=== PATIENT | male | born 1955 | race American Indian/Alaskan Native ===

== ENCOUNTER 2016-07-20 08:47 | Emergency (ER) | payer OTHER ==
[2016-07-20 09:12] VITALS: BP 157/89
--- NOTE | 2016-07-20 10:31 | UC ---
Otilio Dias,[place], scribed for Jennifer Cornell MD on 07/20/16 at 0946 . Skin Complaint HPI - HPI Summary HPI Summary: This 61 y/o male presents to [facility] for a cyst above buttock that has started draining since today. Pt states that his cyst "popped" while in bathroom in [facility]. Pt states that he has been controlling his cyst with unspecified suppository that was prescribed by his doctor. PMHx includes similar pilonidal cyst that, per pt, had surgery done "a year ago". PMHx includes positive leukemia to mother. Pt is former smoker with last smoking date in June 2013 and weekly drinker. Primary care involves Dr. Quezada. - History of Current Complaint Chief Complaint: UCSkin Stated Complaint: SKIN COMPLAINT Hx Obtained From: Patient, Medical Records Onset/Duration: Lasting Hours, Still Present Timing: Constant Onset Severity: Mild Current Severity: Mild Pain Intensity: 0 Pain Scale Used: 0-10 Numeric Location: Other - top of buttocks Character: Swelling, Raised, Painful Aggravating: Nothing Alleviating: Nothing Associated Signs & Symptoms: Positive: Negative. Negative: Fever - Allergy/Home Medications Allergies/Adverse Reactions: Allergies Allergy/AdvReac Type Severity Reaction Status Date / Time Latex Allergy Swelling Verified 05/11/16 14:30 Of Face,Lips,& Throat Home Medications: Home Medications Albuterol HFA INHALER* [Ventolin HFA Inhaler*] 1 puff PO PRN 07/20/16 [History] Budesonide/Formote 80/4.5(NF) [Symbicort 80/4.5 (NF)] 1 puff PO DAILY 07/20/16 [ History Confirmed 07/20/16] Ferrous Sulfate [Fe Tabs] 325 mg PO BID 07/20/16 [History Confirmed 07/20/16] Review of Systems Constitutional: Negative Skin: Other - Draining cyst on top of buttock. Eyes: Negative ENT: Negative Respiratory: Negative Cardiovascular: Negative Gastrointestinal: Negative Genitourinary: Negative Motor: Negative Neurovascular: Negative Musculoskeletal: Negative Neurological: Negative Psychological: Negative All Other Systems Reviewed And Are Negative: Yes PMH/Surg Hx/FS Hx/Imm Hx Previously Healthy: No - hx pilonidal cyst Endocrine History Of: Denies: Diabetes, Thyroid Disease Cardiovascular History Of: Denies: Cardiac Disorders, Hypertension, Pacemaker/ICD Respiratory History Of: Denies: COPD, Asthma GI/ History Of: Denies: Ulcer, Renal Disease - Surgical History Surgical History: Yes Surgery Procedure, Year, and Place: 2004 - DECOMPRESSIVE LAMINECTOMY T11-T12 - [facility] – [place]. 1999 - PERIANAL ABSCESS - Family History Known Family History: Positive: Other - Positive for leukemia to mother - Social History Occupation: Employed Full-time Alcohol Use: Weekly Substance Use Type: Prescribed Substance Use Comment - Amount & Last Used: cyclobenzapene PRN muscle spasms ( back) Smoking Status (MU): Former Smoker Type: Cigarettes Amount Used/How Often: 2-3 per day Length of Time of Smoking/Using Tobacco: 10 years- quit [email or web address] Have You Smoked in the Last Year: Yes Physical Exam Triage Information Reviewed: Yes Appearance: Well-Appearing, No Pain Distress, Obese Vital Signs: Initial Vital Signs Temp 99.1 F 07/20/16 09:05 Pulse 102 07/20/16 09:05 Resp 18 07/20/16 09:05 BP 157/89 07/20/16 09:05 Pulse Ox 98 07/20/16 09:05 Vital Signs Reviewed: Yes Eyes: Positive: Conjunctiva Clear ENT: Positive: Hearing grossly normal. Negative: Muffled/hoarse voice Neck: Positive: Supple Respiratory: Positive: Lungs clear, Normal breath sounds, No respiratory distress Cardiovascular: Positive: RRR, No Murmur, Pulses Normal, Brisk Capillary Refill Abdomen Description: Positive: Nontender, No Organomegaly, Soft Musculoskeletal: Positive: Strength Intact, ROM Intact Neurological: Positive: Alert, Muscle Tone Normal Psychological Exam: Normal Skin: Positive: Other - pilonidal cyst on gluteal cleft, left -- draining serosanguinous fluid. Course/Dx - Course Course Of Treatment: Home medication list is reviewed. Allergy information reviewed. Drainage is cultured. No need for I&D as drainage occured spontaneously. - Differential Diagnoses - Skin Complaint Differential Diagnoses: Abscess, Cellulitis, Other - pilonidal cyst - Diagnoses Provider Diagnoses: 1) pilonidal cyst 2) Elevated blood pressure without diagonsis of HTN. Discharge - Discharge Plan Condition: Stable Disposition: HOME Prescriptions: Cephalexin CAP* [Keflex 500 CAP*] 500 mg PO QID #40 cap Patient Education Materials: Pilonidal Cyst (ED), Cephalexin (By mouth) Forms: *Work Release Referrals: Alfredo Quezada MD [Primary Care Provider] - 2 Days J Carlos Thorpe MD [Medical Doctor] - 2 Days Additional Instructions: Do Sitz Bath four times a day. Keep the area clean and dry. Do not use ointment. Return to urgent care if any new or worsening symptoms. The documentation as recorded by the Otilio cr Soohyun accurately reflects the service I personally performed and the decisions made by , Jennifer Cornell MD.
--- NOTE | 2016-07-21 10:47 | UC ---
Progress - Progress Note Progress Note: cephalexin 07/20/16. cx/sens pending.
== END 2016-07-20 10:10 | disposition home or self-care (01) ==
LOC: UCEAST 08:47
DX: L05.91 Pilonidal cyst without abscess (principal); R03.0 Elevated blood-pressure reading, without diagnosis of hypertension; E66.9 Obesity, unspecified; Z87.891 Personal history of nicotine dependence; Z91.040 Latex allergy status
CPT/HCPCS: 87070; 87205; 99212; G0463

== ENCOUNTER 2017-03-18 06:53 | Day surgery (SDC) | payer OTHER ==
[~2017-03-18 06:53] MED LIST: Buffered Lidocaine 0.9% SYRIN* 5 ML/SYR SYRINGE INTRADERM ONE; Dexamethasone IV* 4 MG/ML 1 ML (4 MG) IV SLOW PU ONE; Famotidine IV* 10 MG/ML 2 ML (20 mg) IV ONE
[2017-03-18] MEDS ORDERED: Dexamethasone IV* 4 MG/ML 1 ML (4 MG) ONE (06:56)
[2017-03-18] MEDS ORDERED: Famotidine IV* 10 MG/ML 2 ML (20 mg) ONE (06:56)
[2017-03-18] MEDS ORDERED: ceFAZolin 2 GM PREMIX (*) 2 GM/50 ML BAG IVPB ONE (06:57)
[2017-03-18] MEDS ORDERED: Buffered Lidocaine 0.9% SYRIN* 5 ML/SYR SYRINGE ONE (06:57)
[2017-03-18] MEDS ORDERED: ceFAZolin 1 GM in Dextrose (*) 0 GM/0 ML BAG IVPB ONE (06:57)
[2017-03-18] MEDS ORDERED: Lidocaine 2% PF * 5 ML VIAL ONE (09:03)
[2017-03-18] MEDS ORDERED: fentaNYL* 50 MCG/ML 2 ML VIAL (100 MCG VIAL) ONE ×2 (09:03→10:20)
[2017-03-18] MEDS ORDERED: Propofol* 10 MG/ML 20 ML BTL IV PUSH ONE (09:03)
[2017-03-18] MEDS ORDERED: Midazolam* 1 MG/ML 2 ML VIAL (2 MG) ONE (09:03)
[2017-03-18] MEDS ORDERED: Bupivacaine 0.25% SDV* 30 ML ONE (09:03)
[2017-03-18] MEDS ORDERED: fentaNYL* 50 MCG/ML 2 ML VIAL (100 MCG VIAL) IV PRN (09:05)
[2017-03-18] MEDS ORDERED: Naloxone* 0.4 MG/ML 1 ML VIAL IV PRN (09:05)
[2017-03-18] MEDS ORDERED: PROCHLORPERAZINE INJ 5 MG/ML 2 ML VIAL IV PRN (09:05)
[2017-03-18] MEDS ORDERED: HYDROcodone/ACETAMIN 5-325 MG* 1 TAB PO PRN (09:05)
[2017-03-18] MEDS ORDERED: Ondansetron INJ* 2 MG/ML VIAL ONE (09:45)
[2017-03-18] MEDS ORDERED: oxyCODONE/Acetamin 5/325 MG* TAB ONE ×2 (10:15→10:59)
[2017-03-18] MEDS: oxyCODONE/Acetamin 5/325 MG* TAB PO PRN ×2 (10:17→11:00)
[2017-03-18 12:01] VITALS: BP 137/88
--- NOTE | 2017-03-18 23:01 | OP ---
DATE OF OPERATION: 03/18/17 - [facility] DATE OF : 59 SURGEON: Emile Mena MD POST FORM REMOVER: JAZ Morales ANESTHESIOLOGIST: Papito Pearson MD ANESTHESIA: General endotracheal anesthesia with local anesthetic given by the surgeon. 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 OPERATIVE PROCEDURE: Right modified Morgan gastrocnemius recession. IMPLANTS: None. TOURNIQUET TIME: Less than 30 minutes with a well padded thigh tourniquet at 250 mmHg. ESTIMATED BLOOD LOSS: Minimal. COMPLICATIONS: None. STATUS: Stable from the operating room to the recovery room and then home. 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 Both nonoperative and operative treatment alternatives were reviewed. Further, the nature and risk of surgery were reviewed in careful detail in the office as well as in the preoperative holding area. Our discussions regarding the risk of surgery included, but were not limited to infection, wound problems, bleeding, nerve injury, neuroma, RSD, persistent symptoms, need for further surgery and even the remote chance of a catastrophic complication including the loss of limb. DESCRIPTION OF PROCEDURE: The patient was seen in the preoperative holding unit and informed written consent was obtained. The appropriate extremity was marked. The patient was then brought to the operating room and carefully positioned on the operating room table. Anesthesia was induced. All bony prominences were padded with great care. A well padded thigh tourniquet was placed. A chlorhexidine based pre-scrub was performed followed by standard prep and drape with ChloraPrep. Surgical safety pause was then conducted in which we confirmed the appropriate patient, extremity, planned procedure, availability of equipment, indication, and administration of prophylactic antibiotics and DVT prophylaxis in the form of a compression boot on the nonsurgical extremity. We began with an Esmarch exsanguination of limb and inflated the tourniquet to 250 mmHg. I then made an approximately 4 cm incision at the posterior medial calf. I carried the dissection down through the soft tissues and coagulated the veins that were encountered. This was carried down bluntly to the level of the crural fascia. An incision was made through the crural fascia to expose the musculotendinous junction of the gastrocnemius. I then exposed the fascia of the gastrocnemius muscle anteriorly and posteriorly. Great care was taken to protect the sural nerve throughout the procedure. I cleared all adhesions from the posterior aspect of the gastrocnemius fascia and then transected it in its entirety from medial to lateral. This had the effect of improving the ankle dorsiflexion to approximately 15 degrees of dorsiflexion. He had maintained a Hercules test. We then again confirmed that the sural nerve was in continuity. We irrigated copiously and then closed the deep dermal layer with 3-0 Monocryl and talita for the skin. A sterile dressing was not applied. A splint was then applied with the ankle in slight dorsiflexion. The patient was then awakened from anesthesia and transferred to the recovery room in stable condition. There were no complications. All needle and sponge counts were correct at the end of the case. ATTESTATION: I attest that I was present, scrubbed and performed the entire procedure myself. POSTOPERATIVE PLAN: The patient will remain nonweightbearing for 2 weeks in the splint. At that time, we will plan on taking out the talita and placing Steri-Strips and letting him start weightbearing in a boot. Progress his activities as tolerated. [id number]/[facility] #: [id number] KAVON
== END 2017-03-18 12:02 | disposition home or self-care (01) ==
LOC: OR 06:53
PROVIDERS: ATTEND Orthopaedic Surgery
DX: M76.61 Achilles tendinitis, right leg (principal); M67.01 Short Achilles tendon (acquired), right ankle; Z87.891 Personal history of nicotine dependence; G47.33 Obstructive sleep apnea (adult) (pediatric); D69.6 Thrombocytopenia, unspecified
CPT/HCPCS: A9270-GY; J0690; J1100; J2250; J2405; J2704; J3010

== ENCOUNTER 2017-10-04 08:03 | Day surgery (SDC) | payer OTHER ==
[~2017-10-04 08:03] MED LIST changes: +Acetaminophen TAB* 325 MG PO PRN; -Dexamethasone IV* 4 MG/ML 1 ML (4 MG) IV SLOW PU ONE; -Famotidine IV* 10 MG/ML 2 ML (20 mg) IV ONE
[2017-10-04] MEDS ORDERED: Midazolam* 1 MG/ML 5 ML VIAL (5 MG) ONE (09:16)
[2017-10-04 10:43] VITALS: BP 138/83
[2017-10-04] MEDS ORDERED: Lidocaine 1%* 5 ML VIAL ONE (12:47)
[2017-10-04] MEDS ORDERED: Phenylephrine 2.5% OPTH.SOL* 2 ML BTL ONE (12:47)
[2017-10-04] MEDS ORDERED: Cyclopentolate 1% OPTH.SOL* 2 ML BTL ONE (12:47)
[2017-10-04] MEDS ORDERED: Tetracaine 0.5% OPTH.SOL 4 ML* 1 DROP BTL ONE (12:47)
[2017-10-04] MEDS ORDERED: acetaZOLAMIDE TAB* 250 MG ONE (12:47)
[2017-10-04] MEDS ORDERED: Neomycin/Polymy/Dex OPHTH.OIN* 3.5 GM ONE (12:47)
[2017-10-04] MEDS ORDERED: Povidone Iodine 5% OPTH* 30 ML BTL ONE (12:47)
[2017-10-04] MEDS ORDERED: Tropicamide 1% OPTH.SOL* BTL ONE (12:47)
[2017-10-04] MEDS ORDERED: Ketorolac 0.5% OPHTH (NF) 0.5 % 5 ML BTL ONE (12:47)
--- NOTE | 2017-10-05 00:33 | OP ---
DATE OF OPERATION: 10/04/[address] - [facility] DATE OF : 59 SURGEON: Clif De La Torre MD ANESTHESIA: Monitored anesthesia care. PRE-OP DIAGNOSIS: Cataract, right eye. POST-OP DIAGNOSIS: Cataract, right eye. OPERATIVE PROCEDURE: Extracapsular cataract extraction of the right eye with intraocular lens implant. IMPLANTS: SN60WF 20.5 diopter lens to the right eye. COMPLICATIONS: None. DESCRIPTION OF PROCEDURE: The patient was given phenylephrine 2.5% and cyclopentolate 1% eye drops to the operative eye in the preoperative area. The patient was taken to the operating room where a time-out was taken to identify the correct patient, site, and side of surgery. The patient's right eye was prepped and draped in the usual sterile fashion with 5% Betadine. A second time -out was taken to verify the correct patient, site, and side of surgery, and correct lens selection. A lid speculum was placed to the right eye. A 1 mm paracentesis blade was used to make a clear corneal incision in the superotemporal position. Preservative free 1% lidocaine was injected into the anterior chamber. DisCoVisc was then injected into the anterior chamber. A 2.75 mm keratome blade was used to make a triplanar incision at the inferotemporal position. A cystotome initiated the capsulorrhexis, which was completed with Utrata forceps in a continuous and curvilinear manner. Hydrodissection of the lens was performed with BSS on a cannula. The lens could be spun in a capsular bag. The phacoemulsification handpiece was used with a divide and conquer technique to remove the nucleus with 23.37 CDE. The I /A handpiece was then removed with a residual cortical lens material. DisCoVisc was injected to inflate the capsular bag. The planned SN60WF 20.5 diopter lens was injected into the capsular bag. The residual DisCoVisc was removed from the eye with the I/A handpiece. The corneal incisions were hydrated and no leaks occurred at physiologic pressure around 20 mmHg per palpation. The lid speculum was removed and drapes removed. Maxitrol ointment was placed to the surface of the operative eye. An adhesive patch and shield was then placed on the operative eye. The patient was taken to the postoperative area in stable condition. [id number]/[facility] #: [id number] [facility] HOSPITALChapo
== END 2017-10-04 10:50 | disposition home or self-care (01) ==
LOC: OREAST 08:03
PROVIDERS: ATTEND Student in an Organized Health Care Education/Training Program
DX: H25.11 Age-related nuclear cataract, right eye (principal); J45.20 Mild intermittent asthma, uncomplicated; K21.9 Gastro-esophageal reflux disease without esophagitis; G47.33 Obstructive sleep apnea (adult) (pediatric); N40.0 Benign prostatic hyperplasia without lower urinary tract symptoms; Z87.891 Personal history of nicotine dependence; E66.9 Obesity, unspecified
CPT/HCPCS: A9270-GY; J2250; V2632

== ENCOUNTER 2017-10-11 10:14 | Day surgery (SDC) | payer OTHER ==
[2017-10-11] MEDS ORDERED: fentaNYL* 50 MCG/ML 2 ML VIAL (100 MCG VIAL) ONE (11:32)
[2017-10-11] MEDS ORDERED: Midazolam* 1 MG/ML 2 ML VIAL (2 MG) ONE (11:32)
[2017-10-11] MEDS ORDERED: Propofol* 10 MG/ML 20 ML BTL IV PUSH ONE (11:35)
[2017-10-11 12:47] VITALS: BP 130/84
[2017-10-11] MEDS ORDERED: Neomycin/Polymy/Dex OPHTH.OIN* 3.5 GM ONE (14:14)
[2017-10-11] MEDS ORDERED: Phenylephrine 2.5% OPTH.SOL* 2 ML BTL ONE (14:14)
[2017-10-11] MEDS ORDERED: Cyclopentolate 1% OPTH.SOL* 2 ML BTL ONE (14:14)
[2017-10-11] MEDS ORDERED: Ketorolac 0.5% OPHTH (NF) 0.5 % 5 ML BTL ONE (14:14)
[2017-10-11] MEDS ORDERED: Lidocaine 1%* 5 ML VIAL ONE (14:14)
[2017-10-11] MEDS ORDERED: acetaZOLAMIDE TAB* 250 MG ONE (14:14)
[2017-10-11] MEDS ORDERED: Povidone Iodine 5% OPTH* 30 ML BTL ONE (14:14)
[2017-10-11] MEDS ORDERED: Tropicamide 1% OPTH.SOL* BTL ONE (14:14)
[2017-10-11] MEDS ORDERED: Tetracaine 0.5% OPTH.SOL 4 ML* 1 DROP BTL ONE (14:14)
--- NOTE | 2017-10-12 12:09 | OP ---
DATE OF OPERATION: 10/11/17 - [facility] DATE OF : 59 SURGEON: Clif De La Torre MD. ANESTHESIA: Monitored anesthesia care. PRE-OP DIAGNOSIS: Cataract, left eye. POST-OP DIAGNOSIS: Cataract, left eye. OPERATIVE PROCEDURE: Extracapsular cataract extraction of the left eye with intraocular lens implant. IMPLANTS: SN60WF 20.5 diopter lens to the left eye. COMPLICATIONS: None. DESCRIPTION OF PROCEDURE: The patient was given phenylephrine 2.5% and cyclopentolate 1% eye drops to the operative eye in the preoperative area. The patient was taken to the operating room where a time-out was taken to identify the correct patient, side, and site of surgery. The patient's left eye was prepped and draped in the usual sterile fashion with 5% Betadine. A second time -out was taken to verify the correct patient, side, and site of surgery, and correct lens implant. A lid speculum was placed to the left eye. A 1 mm paracentesis blade was used to make a clear corneal incision in the inferotemporal position. Preservative-free 1% lidocaine was injected into the anterior chamber. DisCoVisc was then injected into the anterior chamber. A 2.75 mm keratome blade was used to make a triplanar incision at the superotemporal position. A cystotome initiated a capsulorrhexis, which was completed with Utrata forceps in a continuous and curvilinear manner. Hydrodissection of the lens was performed with BSS on a cannula. The lens could be spun in a capsular bag. The phacoemulsification handpiece was used with a [id number] technique to remove the nucleus with 26.25 CDE. The I /A handpiece then removed the residual cortical lens material. DisCoVisc was injected to inflate the capsular bag. The planned SN60WF 20.5 diopter lens was injected into the capsular bag. The residual DisCoVisc was removed from the eye with the I/A handpiece. The corneal incisions were hydrated and no leaks occurred at physiologic pressure around 20 mmHg per palpation. The lid speculum was removed and drapes removed. Maxitrol ointment was placed to the surface of the operative eye. An adhesive patch and shield was then placed on the operative eye. The patient was taken to the postoperative area in stable condition. [id number]/[facility] #: [id number] MTDD
== END 2017-10-11 13:05 | disposition home or self-care (01) ==
LOC: OREAST 10:14
PROVIDERS: ATTEND Student in an Organized Health Care Education/Training Program
DX: H25.12 Age-related nuclear cataract, left eye (principal); Z87.891 Personal history of nicotine dependence; J45.20 Mild intermittent asthma, uncomplicated; G47.33 Obstructive sleep apnea (adult) (pediatric); K21.9 Gastro-esophageal reflux disease without esophagitis; N40.0 Benign prostatic hyperplasia without lower urinary tract symptoms; J30.9 Allergic rhinitis, unspecified; M54.5 Low back pain
CPT/HCPCS: A9270-GY; J2250; J2704; J3010; V2632

== ENCOUNTER 2020-12-04 09:11 | Observation (INO) ==
[~2020-12-04 09:11] MED LIST changes: -Acetaminophen TAB* 325 MG PO PRN; -Buffered Lidocaine 0.9% SYRIN* 5 ML/SYR SYRINGE INTRADERM ONE; +Buffered Lidocaine 1% SYRIN 1 ml INTRADERM ONE; +Lactated Ringers 1000 ml BAG 1,000 ML IV SCH
[2020-12-04] MEDS ORDERED: ceFAZolin 2 GM in NS PREMIX 2 GM/100 ML BAG IVPB ONE (09:55)
[2020-12-04] MEDS ORDERED: ceFAZolin 1 GM ADVAN 1 GM ADDV.VIAL IVPB ONE (09:55)
[2020-12-04] MEDS ORDERED: Lidocaine 2% PF 5 ML VIAL ONE (09:58)
[2020-12-04] MEDS ORDERED: Propofol 10 MG/ML 20 ML BTL ONE (09:58)
[2020-12-04] MEDS ORDERED: Midazolam 2 mg/2 ml VIAL 1 mg/ml 2 ml VIAL (2 mg) ONE ×2 (09:59→10:50)
[2020-12-04] MEDS ORDERED: fentaNYL 250 mcg/5 ml 50 MCG/ML 5 ml VIAL (250 MCG) ONE (09:59)
[2020-12-04] MEDS ORDERED: Ketamine HCL 50 mg/ml 10 ml VIAL (500 MG) ONE (09:59)
[2020-12-04] MEDS ORDERED: Lidocaine 1.5% EPI 1:200,000 30 ML SDV ONE (10:40)
[2020-12-04] MEDS ORDERED: ceFAZolin VIAL VIAL ONE ×3 (10:41→15:27)
[2020-12-04] MEDS ORDERED: Rocuronium 50 mg VIAL 10 mg/ml 5 ml VIAL (50 mg) ONE ×2 (10:42)
[2020-12-04] MEDS ORDERED: Dexamethasone IV 4 MG/ML VIAL 1 ml VIAL ONE (11:53)
[2020-12-04] MEDS ORDERED: Ondansetron 4 mg VIAL 2 MG/ML 2 ml VIAL ONE (11:53)
[2020-12-04] MEDS ORDERED: Naloxone 0.4 mg VIAL 0.4 mg/ml 1 ml VIAL IV PRN (14:11)
[2020-12-04] MEDS ORDERED: diPHENhydraMINE IV 50 MG/ML 1 ml VIAL (BENADRYL) IV PRN (14:11)
[2020-12-04] MEDS ORDERED: DiMENhydriNATE IV 50 mg/ml 1 ml VIAL IV PUSH PRN (14:11)
[2020-12-04] MEDS ORDERED: Acetaminophen IV 1 GM/100ML 100 ML IV ONE (15:16)
[2020-12-04] MEDS ORDERED: Sugammadex 500 MG/5 ML 5 ml VIAL IV PUSH ONE (15:33)
[2020-12-04] MEDS ORDERED: Levalbuterol HFA INHALER MDI ONE (15:55)
[2020-12-04 16:25] LABS: Hematocrit 38 % (42-52); Hemoglobin 12.4 g/dL (14.0-18.0); Mean Corpuscular HGB Conc 33 g/dL (31-36); Mean Corpuscular Hemoglobin 32 pg (27-31); Mean Corpuscular Volume 97 fL (80-94); Mean Platelet Volume 9.8 fL (7.4-10.4); Platelet Count 138 10^3/uL (150-450); Red Cell Distribution Width 17 % (10-15); White Blood Count 7.1 10^3/uL (3.5-10.8)
[2020-12-04 17:08] LABS: INR 1.36 (0.86-1.15)
[2020-12-04] MEDS ORDERED: HYDROcodone/ACETAMIN 5/325 mg TAB PO PRN (17:10)
[2020-12-04] MEDS ORDERED: Ondansetron 4 mg VIAL 2 MG/ML 2 ml VIAL IV PRN (17:10)
[2020-12-04] MEDS ORDERED: DiMENhydriNATE IV 50 mg/ml 1 ml VIAL ONE (17:12)
[2020-12-04] MEDS ORDERED: fentaNYL 100 mcg/2 ml 50 MCG/ML VIAL ONE (17:12)
[2020-12-04] MEDS: fentaNYL 100 mcg/2 ml 50 MCG/ML VIAL IV PRN ×3 (17:13→18:04)
[2020-12-04 19:28] LABS: Hypochromasia 1+
[2020-12-04 19:29] LABS: Anisocytosis 1+
[2020-12-04 19:30] LABS: ABS Lymphocytes 0.9 10^3/ul (1.0-4.8); ABS Monocytes 0.3 10^3/ul (0-0.8); ABS Neutrophils 5.8 10^3/ul (1.5-7.7); Eosinophil % 0.1 %; Lymphocyte % 12.4 %
[2020-12-04] MEDS: HYDROcodone/ACETAMIN 5/325 mg TAB PO PRN (23:41)
[2020-12-05] MEDS: HYDROcodone/ACETAMIN 5/325 mg TAB PO PRN ×2 (07:09→10:56)
[2020-12-05 07:27] VITALS: BP 131/71
== END 2020-12-05 11:50 | disposition home or self-care (01) ==
LOC: OR 09:11 → SSU 09:11
PROVIDERS: ADMIT Neurological Surgery; ATTEND Neurological Surgery